=== PATIENT | female | born 1945 | race Caucasian/White ===

== ENCOUNTER 2020-07-09 21:16 | Outpatient (REF) | payer MEDICARE, BC, SELFPAY ==
[2020-07-12 21:10] LABS: COVID-19 RT-PCR UVMMC Result Negative (Negative)
== END 2020-07-09 21:36 ==
LOC: NCHCN 21:16
PROVIDERS: PCP Nurse Practitioner Family; Visit Provider Nurse Practitioner Family
DX: J06.9 Acute upper respiratory infection, unspecified (principal)
CPT/HCPCS: U0003

== ENCOUNTER 2020-09-06 16:13 | Outpatient (REF) | payer MEDICARE, BC, SELFPAY ==
[2020-09-08 12:46] LABS: COVID-19 RT-PCR UVMMC Result Negative (Negative)
== END 2020-09-06 16:33 ==
LOC: NCHCN 16:13
PROVIDERS: PCP Nurse Practitioner Family; Visit Provider Nurse Practitioner Family
DX: Z11.52 Encounter for screening for COVID-19 (principal)
CPT/HCPCS: U0003

== ENCOUNTER 2022-12-01 11:54 | Outpatient (REF) | payer SELFPAY ==
[2022-12-01 14:39] LABS: Vitamin B12 366 pg/mL (193-986)
== END 2022-12-01 11:55 | disposition home or self-care (01) ==
LOC: NCHCN 11:54
PROVIDERS: PCP Nurse Practitioner Family; Visit Provider Internal Medicine
DX: D51.9 Vitamin B12 deficiency anemia, unspecified (principal)
CPT/HCPCS: 82607

== ENCOUNTER 2023-10-29 19:46 | Outpatient (REF) | payer MEDICARE, BC, SELFPAY ==
[2023-10-29 17:31] LABS: Abs Immature Grans 0.03 10^3/uL (0.0-0.06); Absolute Basophil Count 0.05 10^3/uL (0.0-0.2); Absolute Lymphocyte Count 3.01 10^3/uL (1.2-3.4); Absolute Monocyte Count 0.72 10^3/uL (0.1-0.8); Basophils % 0.6; Eosinophils % 3.4; HCT 39.3 % (36.0-46.0); HGB 12.6 g/dL (11.2-15.7); Immature Grans % 0.3; Lymphocytes % 34.2; MCH 31.4 pg (27.0-33.0); MCHC 32.1 % (32.0-36.0); MCV 98 fL (80-95); MPV 11.9 fL (8.0-11.0); Monocytes % 8.2; Neutrophils % 53.3; Platelet Count 267 10^3/uL (130-400); RBC 4.01 10^6/uL (3.93-5.22); RDW 12.9 % (11.7-14.6); RDW-SD 46.4 fL; WBC 8.81 10^3/uL (4.4-10.8)
[2023-10-29 17:50] LABS: ALT 20 U/L (14-59); AST 18 U/L (15-37); Albumin 3.8 g/dL (3.4-5.0); Alkaline Phosphatase 107 U/L (46-116); Anion Gap 14.4 mmol/L (3-11); BUN 17 mg/dL (7-18); Bilirubin, Total 0.6 mg/dL (0.2-1.0); CO2 24.6 mmol/L (21.0-32.0); CREATININE 0.8 mg/dL (0.55-1.02); Calcium 9.1 mg/dL (8.5-10.1); Chloride 105 mmol/L (98-107); Estimated GFR 75.84 (mL/min/1.73m2); Glucose 92 mg/dL (74-106); Potassium 4.2 mmol/L (3.5-5.1); Sodium 144 mmol/L (136-145); Total Protein 6.7 g/dL (6.4-8.2)
== END 2023-10-29 19:47 | disposition home or self-care (01) ==
LOC: NCHCN 19:46
PROVIDERS: PCP Nurse Practitioner Family; Visit Provider Internal Medicine
DX: R62.7 Adult failure to thrive (principal); D51.9 Vitamin B12 deficiency anemia, unspecified; M81.0 Age-related osteoporosis without current pathological fracture
CPT/HCPCS: 80053; 85025

== ENCOUNTER 2024-10-28 14:26 | Outpatient (REF) | payer MEDICARE, BC, SELFPAY ==
[2024-10-28 16:22] LABS: Abs Immature Grans 0.02 10^3/uL (0.0-0.06); Absolute Basophil Count 0.04 10^3/uL (0.0-0.2); Absolute Eosinophil Count 0.22 10^3/uL (0.0-0.7); Absolute Lymphocyte Count 3.21 10^3/uL (1.2-3.4); Absolute Monocyte Count 0.65 10^3/uL (0.1-0.8); Absolute Neutrophil Count 4.15 10^3/uL (1.2-6.7); Basophils % 0.5 %; Eosinophils % 2.7 %; HCT 40.3 % (36.0-46.0); HGB 12.8 g/dL (11.2-15.7); Immature Grans % 0.2 %; Lymphocytes % 38.7 %; MCH 30.8 pg (27.0-33.0); MCHC 31.8 % (32.0-36.0); MCV 97 fL (80-95); MPV 11.5 fL (8.0-11.0); Monocytes % 7.8 %; Neutrophils % 50.1 %; Platelet Count 246 10^3/uL (130-400); RBC 4.16 10^6/uL (3.93-5.22); RDW 12.9 % (11.7-14.6); RDW-SD 45.8 fL; WBC 8.29 10^3/uL (4.4-10.8)
[2024-10-28 16:39] LABS: ALT 13 U/L (14-59); AST 18 U/L (15-37); Albumin 3.7 g/dL (3.4-5.0); Alkaline Phosphatase 101 U/L (46-116); Anion Gap 10.3 mmol/L (3-11); BUN 16 mg/dL (7-18); Bilirubin, Total 0.7 mg/dL (0.2-1.0); CO2 25.7 mmol/L (21.0-32.0); CREATININE 0.7 mg/dL (0.55-1.02); Calcium 9.2 mg/dL (8.5-10.1); Chloride 109 mmol/L (98-107); Estimated GFR 88.47 (mL/min/1.73m2); Glucose 98 mg/dL (74-106); Potassium 3.8 mmol/L (3.5-5.1); Sodium 145 mmol/L (136-145); Total Protein 6.6 g/dL (6.4-8.2)
== END 2024-10-28 14:27 | disposition home or self-care (01) ==
LOC: LBN 14:26
PROVIDERS: PCP Nurse Practitioner Family; Visit Provider Internal Medicine
DX: R53.1 Weakness (principal); Z86.711 Personal history of pulmonary embolism
CPT/HCPCS: 80053; 85025